=== PATIENT | male | born 2000 | race Two or more races ===

== ENCOUNTER 2019-05-29 11:15 | Emergency (ER) | payer SELFPAY ==
[~2019-05-29] VITALS: Ht 172.7 cm; Wt 88.9 kg
--- NOTE | 2019-05-29 11:15 | NUR ---
ED Nurse Note: Patient kimberly RA from home c/o blood tinged vomit, patient admits to eating hot cheetos the whole day yesterday and reports of having the vomit start yesterday as well, reports the chracteristic of the vomit as clear with blood tinged, complains of left upper adbominal pain. patient is alert and oriented x4,
[2019-05-29 11:21] VITALS: BP 117/83
[2019-05-29 11:43] LABS: BASOPHILS % (AUTO) 0.5 % (0.0-2.0); EOSINOPHILS % (AUTO) 0.5 % (0.0-3.0); HEMATOCRIT 47.8 % (42.0-52.0); HEMOGLOBIN 16.6 G/DL (14.2-18.0); LYMPHOCYTES % (AUTO) 10.4 % (20.0-45.0); MEAN CORPUSCULAR VOLUME 88 FL (80-99); MONOCYTES % (AUTO) 5.8 % (1.0-10.0); NEUTROPHILS % (AUTO) 82.9 % (45.0-75.0); PLATELET COUNT 298 K/UL (150-450); RED BLOOD COUNT 5.42 M/UL (4.70-6.10); WHITE BLOOD COUNT 15.2 K/UL (4.8-10.8)
[2019-05-29 12:01] LABS: ANION GAP 14 mmol/L (5-15); BLOOD UREA NITROGEN 16 mg/dL (7-18); CALCIUM 9.6 MG/DL (8.5-10.1); CARBON DIOXIDE 24 MMOL/L (21-32); CHLORIDE 110 MMOL/L (98-107); CREATININE 1.1 MG/DL (0.55-1.30); POTASSIUM 3.9 MMOL/L (3.5-5.1); SODIUM 148 MMOL/L (136-145)
[2019-05-29 12:05] LABS: ALANINE AMINOTRANSFERASE 52 U/L (12-78); ALBUMIN 4.6 G/DL (3.4-5.0); ALBUMIN/GLOBULIN RATIO 1.2 (1.0-2.7); ALKALINE PHOSPHATASE 100 U/L (46-116); ASPARTATE AMINO TRANSFERASE 23 U/L (15-37); BILIRUBIN,TOTAL 0.5 MG/DL (0.2-1.0)
[2019-05-29] MEDS ORDERED: Isovue-300 100ml vial INJ PRN (12:15)
--- NOTE | 2019-05-29 12:15 | NUR ---
ED Nurse Note: pt went down for CT in stable condition.
--- NOTE | 2019-05-29 12:20 | Emergency Room Report ---
History of Present Illness General Chief Complaint: General Complaint Source: Patient Present Illness HPI Patient presents with complaints of vomiting of blood approximately 5:00 this morning patient reports that he has had one other episode which also had tinge of blood Denies any abdominal pain denies any headache patient takes multiple psychiatric medications including trazodone Denies any lower abdominal pain denies any dysuria or frequency He had some mild nausea at this time Allergies: Coded Allergies: No Known Allergies (Unverified , 05/29/19) Patient History Past Medical History: see triage record Reviewed Nursing Documentation: PMH: Agreed; PSxH: Agreed Nursing Documentation-PMH Past Medical History: No Stated History Review of Systems All Other Systems: negative except mentioned in HPI Physical Exam Vital Signs Date Time Temp Pulse Resp B/P (MAP) Pulse Ox O2 Delivery O2 Flow Rate FiO2 05/29/19 11:11 92.8 92 16 117/83 (94) 98 Room Air Sp02 EP Interpretation: reviewed, normal General Appearance: well appearing, no apparent distress Head: normocephalic, atraumatic Eyes: bilateral eye PERRL, bilateral eye EOMI ENT: hearing grossly normal, normal pharynx, TMs + canals normal, uvula midline Neck: full range of motion, supple, no meningismus, no bony tend Respiratory: lungs clear, normal breath sounds, no rhonchi, no respiratory distress, no retraction, no accessory muscle use Cardiovascular #1: normal peripheral pulses, regular rate, rhythm, no edema, no gallop, no JVD, no murmur Gastrointestinal: normal bowel sounds, non tender, soft, no mass, no organomegaly, non-distended, no guarding, no hernia, no pulsatile mass, no rebound Genitourinary: no CVA tenderness Musculoskeletal: normal inspection Neurologic: oriented x3, responsive, market reporter III-XII nml as tested, motor strength/ tone normal, sensory intact Psychiatric: mood/affect normal Lymphatic: normal inspection, no adenopathy Medical Decision Making Diagnostic Impression: Primary Impression: Vomiting Additional Impression: Colitis ER Course With the history exam and presentation, multiple differentials considered, including but not limited to appendicitis, gastritis, cholecystitis, diverticulitis Given the reports of blood upper GI bleeding also entertained highly Patient did have a vomiting episode here there was no evidence of blood there was small tinge of brown type material however no obvious blood Blood work shows a white blood cell count that is mildly elevated given the discomfort CT imaging was done which shows some question of colitis Patient remains otherwise significantly improved Given the lack of any obvious hemorrhage and the findings of colitis patient will have initial conservative outpatient trial Labs Test 05/29/19 11:30 05/29/19 13:20 White Blood Count 15.2 K/UL (4.8-10.8) Red Blood Count 5.42 M/UL (4.70-6.10) Hemoglobin 16.6 G/DL (14.2-18.0) Hematocrit 47.8 % (42.0-52.0) Mean Corpuscular Volume 88 FL (80-99) Mean Corpuscular Hemoglobin 30.6 PG (27.0-31.0) Mean Corpuscular Hemoglobin Concent 34.7 G/DL (32.0-36.0) Red Cell Distribution Width 11.0 % (11.6-14.8) Platelet Count 298 K/UL (150-450) Mean Platelet Volume 7.6 FL (6.5-10.1) Neutrophils (%) (Auto) 82.9 % (45.0-75.0) Lymphocytes (%) (Auto) 10.4 % (20.0-45.0) Monocytes (%) (Auto) 5.8 % (1.0-10.0) Eosinophils (%) (Auto) 0.5 % (0.0-3.0) Basophils (%) (Auto) 0.5 % (0.0-2.0) Sodium Level 148 MMOL/L (136-145) Potassium Level 3.9 MMOL/L (3.5-5.1) Chloride Level 110 MMOL/L (98-107) Carbon Dioxide Level 24 MMOL/L (21-32) Anion Gap 14 mmol/L (5-15) Blood Urea Nitrogen 16 mg/dL (7-18) Creatinine 1.1 MG/DL (0.55-1.30) Estimat Glomerular Filtration Rate > 60 mL/min (>60) Glucose Level 124 MG/DL (74-106) Calcium Level 9.6 MG/DL (8.5-10.1) Total Bilirubin 0.5 MG/DL (0.2-1.0) Aspartate Amino Transf (AST/SGOT) 23 U/L (15-37) Alanine Aminotransferase (ALT/SGPT) 52 U/L (12-78) Alkaline Phosphatase 100 U/L (46-116) Total Protein 8.5 G/DL (6.4-8.2) Albumin 4.6 G/DL (3.4-5.0) Globulin 3.9 g/dL Albumin/Globulin Ratio 1.2 (1.0-2.7) Lipase 96 U/L (73-393) Urine Opiates Screen Negative (NEGATIVE) Urine Barbiturates Screen Negative (NEGATIVE) Phencyclidine (PCP) Screen Negative (NEGATIVE) Urine Amphetamines Screen Negative (NEGATIVE) Urine Benzodiazepines Screen Positive (NEGATIVE) Urine Cocaine Screen Negative (NEGATIVE) Urine Marijuana (THC) Screen Positive (NEGATIVE) Chest X-Ray Diagnostic Results Chest X-Ray Diagnostic Results : Chest X-Ray Ordered: Yes # of Views/Limited/Complete: 1 View Indication: Chest Pain EP Interpretation: Yes Interpretation: no consolidation, no effusion Impression: No acute disease Electronically Signed by: Pedro Townsend DO CT/MRI/US Diagnostic Results CT/MRI/US Diagnostic Results : Impression CT abdomen pelvisImpression: Limited assessment of the GI tract, due to lack of enteric contrast administration. Equivocal mild thickening of ascending colon wall, if real could indicate mild colitis changes. No acute process otherwise. Normal appendix Equivocal mild hepatic hypoattenuation, could indicate early fatty change Borderline splenomegaly Last Vital Signs Date Time Temp Pulse Resp B/P (MAP) Pulse Ox O2 Delivery O2 Flow Rate FiO2 05/29/19 11:21 92.8 76 16 117/83 98 Room Air Status: improved Disposition: HOME, SELF-CARE Condition: Improved Scripts Ondansetron* (ZOFRAN*) 4 Mg Tablet 4 MG ORAL Q12HR PRN for Nausea & Vomiting for 7 Days, TAB Prov: Pedro Townsend DO 05/29/19 Additional Instructions: Patient is provided with the discharge instructions notified to follow up with primary doctor in the next 2-3 days otherwise return to the er with any worsening symptoms. Please note that this report is being documented using [employer] technology. This can lead to erroneous entry secondary to incorrect interpretation by the dictating instrument. Pedro Townsend DO May 29, 2019 12:20
--- NOTE | 2019-05-29 12:40 | NUR ---
ED Nurse Note: pt came back from CT in stable condition.
--- NOTE | 2019-05-29 13:02 | NUR ---
ED Nurse Note: pt reported he cannot urinate due to dehydration. pt was reminded for urine sample needed.
--- NOTE | 2019-05-29 13:18 | NUR ---
ED Nurse Note: urine sent to lab.
--- NOTE | 2019-05-29 13:22 | Diagnostic Imaging Report ---
Indication: Chest pain Technique: One view of the chest Comparison: none Findings: Lungs and pleural spaces are clear. Heart size is normal Impression: No acute process
--- NOTE | 2019-05-29 13:28 | Diagnostic Imaging Report ---
Clinical Indication: Abdominal pain and vomiting Technique: No oral contrast utilized, per emergency room physician request IV administration nonionic contrast. Venous phase spiral acquisition obtained through the abdomen and pelvis. Multiplanar reconstructions were generated. Total dose length product 977.44 mGycm. CTDIvol(s) 18.16 mGy. Dose reduction achieved using automated exposure control Comparison: none Findings: Lack of enteric contrast limits assessment of the GI tract. The appendix is normal. There is equivocal minimal wall thickening of the ascending colon. There is no evidence of diverticulosis or diverticulitis. No small bowel distention. No free or loculated intraperitoneal gas or fluid is evident. The distal esophagus, stomach, duodenum are unremarkable. The liver is equivocally slightly hypoattenuating, could indicate mild fatty change. The gallbladder, bile ducts, pancreas are unremarkable. The spleen is borderline enlarged, measuring 13 cm long axis dimension. The adrenals and kidneys are unremarkable. No renal or ureteral calculi, hydronephrosis, or hydroureter. No pelvic mass or adenopathy. No retroperitoneal or mesenteric mass or adenopathy. The included lung bases demonstrate some scarring or atelectasis in the inferior lingula, are otherwise clear. The bones are unremarkable Impression: Limited assessment of the GI tract, due to lack of enteric contrast administration. Equivocal mild thickening of ascending colon wall, if real could indicate mild colitis changes. No acute process otherwise. Normal appendix Equivocal mild hepatic hypoattenuation, could indicate early fatty change Borderline splenomegaly The CT scanner at [facility] is accredited by the [employer] and the scans are performed using protocols designed to limit radiation exposure to as low as reasonably achievable to attain images of sufficient resolution adequate for diagnostic evaluation.
[2019-05-29] MEDS ORDERED: ZOFRAN4 M3 ORAL (13:46)
[2019-05-29 13:50] VITALS: BP 125/74
--- NOTE | 2019-05-29 13:50 | NUR ---
ED Nurse Note: Pt cleared by health care Provider for discharge. DC instructions/prescription was given and explained to pt and verbalized understanding of teachings. All medical deviecs such as ID band removed. Pt is AAO x4, ambulatory and left with all personal belongings.
== END 2019-05-29 13:50 | disposition home or self-care (01) ==
LOC: EDBD 11:15 → EMR 13:30
DX: K52.9 Noninfective gastroenteritis and colitis, unspecified (principal); R07.9 Chest pain, unspecified
CPT/HCPCS: 36415; 71045; 74177; 80053; 80307; 83690; 85025; 96360; 99284; Q9967